=== PATIENT | female | born 1990 | race Caucasian/White ===

== ENCOUNTER 2021-06-23 10:38 | Emergency (ER) | payer SELFPAY ==
--- NOTE | 2021-06-23 12:21 | Emergency Department Report ---
ED General Adult HPI - General Chief complaint: Medical Clearance Stated complaint: BED BUG BITES Time Seen by Provider: 06/23/21 12:10 Source: patient Mode of arrival: Ambulatory Limitations: No Limitations - History of Present Illness Initial comments: Patient presents secondary to bedbug bites. She is itching. Patient stayed in a hotel recently and noticed that there were bedbugs. She immediately checked out. She has been using Benadryl without symptomatic improvement. She did notice bedbugs in the room itself. She has washed all of her clothes. She is washed her children's close. They to have bedbug bites. Because of the itching, patient came here for evaluation. She has no fevers or chills. There has been no change in laundry soap or bath soap. She has not noticed any other insect bite. These are diffuse. - Related Data Previous Rx's Medication Instructions Recorded Last Taken Type hydrOXYzine HCL [Atarax] 25 mg PO Q6HR PRN #20 tablet 06/23/21 Unknown Rx Allergies Allergy/AdvReac Type Severity Reaction Status Date / Time No Known Allergies Allergy Unverified 06/23/21 11:45 ED Review of Systems ROS: Stated complaint: BED BUG BITES Other details as noted in HPI Comment: All other systems reviewed and negative Constitutional: denies: fever Eyes: denies: eye pain ENT: denies: ear pain Respiratory: denies: cough Cardiovascular: denies: chest pain Endocrine: denies: unexplained weight loss Gastrointestinal: denies: abdominal pain Genitourinary: denies: dysuria Musculoskeletal: denies: back pain Skin: as per HPI Neurological: denies: headache Psychiatric: denies: depression, suicidal thoughts Hematological/Lymphatic: denies: easy bruising ED Past Medical Hx - Past Medical History Previous Medical History?: No - Surgical History Past Surgical History?: Yes Additional Surgical History: - Family History Family history: no significant - Medications Home Medications: Home Medications Medication Instructions Recorded Confirmed Last Taken Type hydrOXYzine HCL [Atarax] 25 mg PO Q6HR PRN #20 tablet 06/23/21 Unknown Rx ED Physical Exam - General Limitations: No Limitations General appearance: alert, in no apparent distress - Head Head exam: Present: atraumatic, normocephalic - Eye Eye exam: Present: normal appearance, EOMI. Absent: scleral icterus - ENT ENT exam: Present: normal exam, normal orophraynx, normal external ear exam - Neck Neck exam: Present: normal inspection, full ROM. Absent: meningismus - Respiratory Respiratory exam: Absent: respiratory distress - Cardiovascular Cardiovascular Exam: Present: other (Normal pulses) - GI/Abdominal GI/Abdominal exam: Present: other (Mildly obese) - Extremities Exam Extremities exam: Present: normal capillary refill - Back Exam Back exam: Present: normal inspection - Neurological Exam Neurological exam: Present: alert, oriented X3, normal gait - Psychiatric Psychiatric exam: Present: normal affect, normal mood - Skin Skin exam: Present: warm, dry, other (Multiple areas that are consistent with bedbug bites and skin excoriation from scratching) ED Course Vital Signs 06/23/21 11:46 Temperature 98.5 F Pulse Rate 90 Respiratory 18 Rate Blood Pressure 130/69 [Right] O2 Sat by Pulse 98 Oximetry - Reevaluation(s) Reevaluation #1: 06/23/21 12:20 Patient was discharged. ED Medical Decision Making - Medical Decision Making Patient presented with bedbug bites and itching. She has been using [id number] medication. Vistaril was added. There is no evidence of a secondary cellulitis. She has no other insect exposure. Children have similar bites. She did not want them seen. Patient has been reassured. She states that she is washed all of her clothes and was continued to do so. She does not have symptoms that would suggest any other type of hepatic or renal disease. She is not suicidal or homicidal. There is no evidence of drug intoxication or formication. Critical Care Time: No Critical care attestation.: If time is entered above; I have spent that time in minutes in the direct care of this critically ill patient, excluding procedure time. ED Disposition Clinical Impression: Bed bug bite Qualifiers: Encounter type: initial encounter Qualified Code(s): W57.XXXA - Bitten or stung by nonvenomous insect and other nonvenomous arthropods, initial encounter Disposition: HOME / SELF CARE / HOMELESS Is pt being admited?: No Does the pt Need Aspirin: No Condition: Stable Instructions: Insect Bite, Adult, [id number] Additional Instructions: Keep the skin clean. Wash all of the clothing and bed sheets. Return for problems. Follow-up with your regular doctor for recheck. If you do not have a primary doctor, follow-up with the referral physician. Prescriptions: hydrOXYzine HCL [Atarax] 25 mg PO Q6HR PRN #20 tablet PRN Reason: Itching Referrals: PRIMARY CARE, [Referring] - 3-5 Days DEBRA MAK MD [Staff Physician] - 3-5 Days
[2021-06-23 13:09] VITALS: BP 125/76
== END 2021-06-23 13:16 | disposition home or self-care (01) ==
LOC: ED 10:38
DX: L29.9 Pruritus, unspecified (principal); Z98.890 Other specified postprocedural states; W57.XXXA Bitten or stung by nonvenomous insect and other nonvenomous arthropods, initial encounter; Y93.89 Activity, other specified; Y92.89 Other specified places as the place of occurrence of the external cause; Y99.8 Other external cause status
CPT/HCPCS: 99282